=== PATIENT | female | born 2000 | race Caucasian/White ===

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

== ENCOUNTER 2023-01-06 18:33 | Emergency (ER) | payer OTHER ==
[~2023-01-06] VITALS: Ht 154.9 cm; Wt 65.8 kg
[~2023-01-06 18:33] MED LIST changes: +CEPH-588 PO; +DOXY-487 PO
[2023-01-06 18:44] VITALS: BP 116/76; PULSE 82; RESP 18; TEMP 98; O2SAT 100
[2023-01-06] MEDS ORDERED: KETOROLAC 30 MG/ML VIAL IM ONE (19:00)
[2023-01-06] MEDS ORDERED: DICL100G5 TP (19:41)
[2023-01-06] MEDS ORDERED: CAPS1ADH5 TP (19:41)
[2023-01-06] MEDS ORDERED: NAPR-1704 PO (19:41)
[2023-01-06 19:50] VITALS: BP 120/79; PULSE 86; RESP 17; TEMP 98; O2SAT 100
== END 2023-01-06 19:50 | disposition home or self-care (01) ==
LOC: MED 18:33
DX: M54.30 Sciatica, unspecified side (principal); Z79.899 Other long term (current) drug therapy
CPT/HCPCS: 72100; 81002; 81025; 96372; 99283; J1885

== ENCOUNTER 2023-06-22 17:54 | Emergency (ER) | payer OTHER ==
[~2023-06-22] VITALS: Ht 157.5 cm; Wt 72.6 kg
[~2023-06-22 17:54] MED LIST changes: +CAPS1ADH5 TP; +DICL100G32 TP; +NAPR-1704 PO
[2023-06-22 18:15] VITALS: BP 128/79; PULSE 89; RESP 18; TEMP 97; O2SAT 98
[2023-06-22 20:17] LABS: BASOPHILS # (AUTO) 0.1 K/uL (0.00-0.22); BASOPHILS % (AUTO) 0.4 % (0.0-2.0); EOSINOPHILS # (AUTO) 0.1 K/uL (0-0.4); EOSINOPHILS % (AUTO) 1.2 % (0.0-4.0); HEMATOCRIT 37.8 % (36-48); HEMOGLOBIN 12.5 g/dL (12.0-16.0); LYMPHOCYTES # (AUTO) 1.7 K/uL (2.5-16.5); LYMPHOCYTES % (AUTO) 14.2 % (20.5-51.1); MEAN CORPUSCULAR HEMOGLOBIN 29 pg (27-31); MEAN CORPUSCULAR HGB CONC 33 g/dL (33-37); MEAN CORPUSCULAR VOLUME 88.7 fL (80-94); MONOCYTES # (AUTO) 0.9 K/uL (0.8-1.0); MONOCYTES % (AUTO) 7.3 % (1.7-9.3); NEUTROPHILS # (AUTO) 9.2 K/uL (1.8-7.7); NEUTROPHILS % (AUTO) 76.9 % (42.2-75.2); PLATELET COUNT (AUTO) 212 K/uL (140-450); RED BLOOD CELL COUNT(AUTO) 4.26 MIL/uL (4.20-5.40); RED CELL DISTRIBUTION WIDTH 14.6 % (11.6-13.7)
[2023-06-22 20:31] LABS: ANION GAP 13.8 (8-16); CALCIUM 9.3 mg/dL (8.5-10.1); CARBON DIOXIDE 25.8 mmol/L (21-32); CREATININE 0.5 mg/dL (0.6-1.3); POTASSIUM 3.6 mmol/L (3.5-5.1)
== END 2023-06-22 23:05 | disposition home or self-care (01) ==
LOC: MED 17:54
DX: O9A.211 Injury, poisoning and certain other consequences of external causes complicating pregnancy, first trimester (principal); S39.82XA Other specified injuries of lower back, initial encounter; Z3A.01 Less than 8 weeks gestation of pregnancy; Z79.899 Other long term (current) drug therapy; W18.30XA Fall on same level, unspecified, initial encounter; Y93.89 Activity, other specified; Y92.89 Other specified places as the place of occurrence of the external cause; Y99.8 Other external cause status
CPT/HCPCS: 36415; 76817; 80048; 84702; 85025; 99284